=== PATIENT | male | born 1950 | race Native Hawaiian/Other Pacific Islander ===

== ENCOUNTER 2021-10-25 13:51 | Outpatient (CLI) | payer OTHER | END 2021-10-25 20:00 | disposition home or self-care (01) | LOC: LABW 13:51 | PROVIDERS: ATTEND Internal Medicine | DX: R06.02 Shortness of breath (principal); M79.89 Other specified soft tissue disorders; M79.605 Pain in left leg | CPT/HCPCS: 36415; 82565; 84520; 85379; Q9963 ==

== ENCOUNTER 2022-03-28 09:55 | Outpatient (CLI) | payer OTHER | END 2022-03-28 19:02 | disposition home or self-care (01) | LOC: CT 09:55 | PROVIDERS: ATTEND Internal Medicine | DX: D58.2 Other hemoglobinopathies (principal); Z86.718 Personal history of other venous thrombosis and embolism; Z86.711 Personal history of pulmonary embolism; R53.83 Other fatigue; I26.99 Other pulmonary embolism without acute cor pulmonale; Z09 Encounter for follow-up examination after completed treatment for conditions other than malignant neoplasm | CPT/HCPCS: 36415; 82565; 84520; Q9963 ==